=== PATIENT | female | born 1935 | race Caucasian/White ===

== ENCOUNTER 2020-06-06 11:11 | Inpatient (IN) | payer MEDICARE, BC, SELFPAY ==
[2020-06-06] VITALS (11 sets, daily range): BP systolic 135–206; BP diastolic 80–101; PULSE 55–90; RESP 15–20; TEMP 37–37.1; O2SAT 91–97; BMI 27.4; BMI 26.4
--- NOTE | 2020-06-06 11:13 | PC.NURSE ---
Rad notified of stroke protocol
--- NOTE | 2020-06-06 11:35 | PC.NURSE ---
Pt to rad
[2020-06-06 11:43] LABS: POC Glucose,Bedside 150 (70-110)
--- NOTE | 2020-06-06 11:44 | CT_ITS ---
PROCEDURE: CT HEAD/BRAIN WO CON CLINICAL INDICATION: left sided weakness COMPARISON: No exams were available for comparison TECHNIQUE: Axial images obtained. All CT scans at the facility use one or more dose reduction, viz: automated exposure control, ma/kV adjustment per patient size (including targeted exams where dose is matched to indication, i.e. head), or iterative reconstruction technique. FINDINGS: Base of skull appears grossly normal, the mastoids are clear. The basilar cisterns are mildly prominent. The ventricular system is normal for age. There is an oval hypodense lesion right periventricular white matter centrum semiovale consistent with acute to semi acute ischemic infarct. Also there are more diffuse periventricular hypodensities consistent with chronic ischemic white matter changes. There is no bleed. The sylvian fissures and cortical sulci are prominent particularly over the frontal lobes. The bony calvarium appears intact with findings of hyperostosis frontalis interna. IMPRESSION: Findings of moderate cortical atrophy with acute to semi acute ischemic infarct right centrum semiovale. Difficult to adequately age the infarct without previous studies available for comparison. Possibly follow-up MRI scan the next 24-48 hours would be helpful for better evaluation. Dictated by: Dr. Andre Starr MD 06/06/2020 12:04 Dr. Andre Starr MD in [place] 06/06/2020 12:04
[2020-06-06 11:46] LABS: Basophils # 0.2 K/mm3 (0-0.2); Basophils % 0.8 % (0.1-2.0); Eosinophils # 0.1 K/mm3 (0.0-0.4); Eosinophils % 0.5 % (0.1-12.0); Hematocrit 42.4 % (37.0-47.0); Hemoglobin 14.3 g/dL (12.2-16.2); Lymphocytes # 19.6 K/mm3 (0.7-4.5); Lymphocytes % 72.8 % (10-50); Mean Corpuscular HGB Conc 33.7 g/dL (31.8-35.4); Mean Corpuscular Hemoglobin 31.8 pg (27.0-31.2); Mean Corpuscular Volume 94.3 fl (81-99); Mean Platelet Volume 7.6 fl (7.4-10.4); Monocytes # 0.4 K/mm3 (0.1-1.0); Monocytes % 1.6 % (1.7-9.3); Neutrophils # 6.5 K/mm3 (1.8-7.8); Neutrophils % 24.3 % (37.0-80.0); Platelet Count 298 K/mm3 (142-424); Red Cell Distribution Width 13.4 % (11.5-17.5); White Blood Count 26.9 K/mm3 (4.8-10.8)
[2020-06-06 11:48] LABS: MANUAL DIFFERENTIAL MANUAL DIFFERENTIAL (MANUAL DIFF)
[2020-06-06 11:51] LABS: Chloride 100 mmol/L (98-107); Potassium 3.9 mmoL/L (3.5-5.1); Sodium 137 mmol/L (136-145)
[2020-06-06 11:54] LABS: Alanine Aminotransferase 18 U/L (12-78); Albumin Level 4.3 g/dl (3.5-5.0); Albumin/Globulin Ratio 1.3 (1.1-1.8); Alkaline Phosphatase 65 U/L (38-126); Anion Gap 13.9 mEq/L (5-15); Aspartate Amino Transferase 38 U/L (14-36); Bilirubin,Total 0.6 mg/dl (0.2-1.3); Blood Urea Nitrogen 17 mg/dl (7-17); Carbon Dioxide 27 mmol/L (22.0-30.0); Creatinine Clearance Estimated 52 mL/min (50-200); Estimated Glomerular Filt Rate 60 ml/min (>60); GFR (African American) 72 ML/MIN (>60); Globulin 3.3 g/dL (1.3-3.2); Total Protein,Serum 7.6 g/dl (6.3-8.2)
[2020-06-06 11:55] LABS: Calcium 9.4 mg/dl (8.4-10.2); Glucose 167 mg/dl (74-100)
--- NOTE | 2020-06-06 12:04 | HMH.EDWEAK ---
ED Disposition Clinical Impression: CVA (cerebral vascular accident) Qualifiers: CVA mechanism: thrombosis Precerebral and cerebral artery: unspecified cerebral artery Qualified Code(s): I63.30 - Cerebral infarction due to thrombosis of unspecified cerebral artery Disposition: Admitted As Inpatient Condition on Discharge: Fair Additional Instructions: She will be admitted for subacute CVA. At this point acute treatment is contraindicated. Will provide secondary prevention and start patient on a statin will get a fasting lipid panel in the morning. Patient's blood glucose glucose is also elevated at 170. In the meantime we will start sliding scale insulin with fingersticks. Patient also has elevated white count of nearly 27,000 with leukocytic predominance. Patient reports she has not had labs for many years as such we will further define and differentiate this abnormality with a erythrocyte sedimentation rate as well as C-reactive protein I will also order a leukocyte alanine phosphatase and evaluation of leukemia. Prior to admission case was discussed with Dr. Johnson of neurology who agreed with the current plan. Referrals: Tucker Castillo MD [Primary Care Provider] - - Critical Care Critical Care Time: No Attestation: On 06/06/20, the high probability of a clinically significant, sudden or life threatening deterioration of the following system(s) required my full and direct attention, intervention and personal management. The time I documented below is in addition to time spent performing reported procedures but includes the following listed in this critical care notation. Medical Decision Making - Medical Records Medical records reviewed: Yes: I reviewed the patient's medical records. - [facility] Inquiry Pt receiving controlled substance: No Vital Signs: 06/06/20 11:12 06/06/20 11:42 06/06/20 12:01 Temperature 98.8 F Temperature Source Oral Pulse Rate [Left Radial] 90 74 80 Respiratory Rate 19 20 17 Blood Pressure [Right Arm] 206/93 H 166/83 H 182/93 H Blood Pressure Mean [Right Arm] 130 110 122 Blood Pressure Source [Right Arm] Automatic Cuff Blood Pressure Position [Right Arm] Sitting 02 Sat by Pulse Oximetry 96 97 91 L Oxygen Delivery Method Room Air 06/06/20 12:47 06/06/20 13:06 Temperature Temperature Source Pulse Rate [Left Radial] 60 60 Respiratory Rate Blood Pressure [Right Arm] 180/94 H 164/90 H Blood Pressure Mean [Right Arm] 122 114 Blood Pressure Source [Right Arm] Automatic Cuff Automatic Cuff Blood Pressure Position [Right Arm] Sitting Sitting 02 Sat by Pulse Oximetry 97 94 L Oxygen Delivery Method Room Air Room Air - Lab Data Lab Results 06/06/20 11:37: POC Glucose 150 H 06/06/20 11:42: WBC 26.9 H*, RBC 4.50, Hgb 14.3, Hct 42.4, MCV 94.3, MCH 31.8 H, MCHC 33.7, RDW 13.4, Plt Count 298, MPV 7.6, Neut % (Auto) 24.3 L, Lymph % (Auto) 72.8 H, [place] % (Auto) 1.6 L, Eos % (Auto) 0.5, Baso % (Auto) 0.8, Neut # (Auto) 6.5, Lymph # (Auto) 19.6 H, [place] # (Auto) 0.4, Eos # (Auto) 0.1, Baso # (Auto) 0.2, Total Counted 100, Neutrophils % (Manual) 29 L, Lymphocytes % (Manual) 71 H, Platelet Estimate Normal, RBC Morphology Normal 06/06/20 11:42: Sodium 137, Potassium 3.9, Chloride 100, Carbon Dioxide 27, Anion Gap 13.9, BUN 17, Creatinine 0.90, Estimated Creat Clear 52, Estimated GFR 60, Est GFR ( Amer) 72, Glucose 167 H, Calcium 9.4, Total Bilirubin 0.6, AST 38 H, ALT 18, Alkaline Phosphatase 65, Total Protein 7.6, Albumin 4.3, Globulin 3.3 H, Albumin/Globulin Ratio 1.3 06/06/20 11:42: Troponin I < 0.01 06/06/20 11:42: SARS-CoV-2 IgG Ab (Rapid) Negative, SARS-CoV-2 IgM Ab (Rapid) Negative Result diagrams: 06/06/20 11:42 06/06/20 11:42 Orders (Tests/Meds): ORDERS Category Date Time Status C-Reactive Protein Stat Lab 06/06/20 11:42 Received Erythrocyte Sedimentation Rate Stat Lab 06/06/20 11:42 Received Leukocyte Alkaline Phos Score Stat Lab 06/06/20 12:54 Ordered
--- NOTE | 2020-06-06 12:04 | PC.NURSE ---
Pt returned from rad.
--- NOTE | 2020-06-06 12:14 | ECG_ITS ---
APPROVED REPORT Exam: Resting ECG HR:71 bpm ECG Measurements Heart Rate 71 AXES MA 168 P 62 QRSd 114 QRS -51 QT 382 T 44 QTc 415 <Conclusion> Normal sinus rhythm Left anterior fascicular block Minimal voltage criteria for LVH, may be normal variant Abnormal ECG Electronically signed by : Tucker Cardozo, 06/07/2020 06:56:07
[2020-06-06 12:22] LABS: Lymphocytes % 71 % (10-50); Neutrophils % 29 % (42-76); Platelet Estimate Normal; RBC Morphology Normal; Total Cells Counted 100
--- NOTE | 2020-06-06 12:27 | PC.NURSE ---
Paging dr Vargas
--- NOTE | 2020-06-06 12:29 | PC.NURSE ---
Message left for dr fraser
[2020-06-06 12:36] LABS: Coronavirus 19 IgG Antibody Negative (Negative); Coronavirus 19 IgM Antibody Negative (Negative)
[2020-06-06 12:40] LABS: Troponin I < 0.01 ng/ml (0.00-0.034)
--- NOTE | 2020-06-06 12:49 | PC.NURSE ---
dr maldonado speaking with dr fraser
--- NOTE | 2020-06-06 12:54 | PC.NURSE ---
calling [facility] at this time
--- NOTE | 2020-06-06 13:05 | PC.NURSE ---
kali vines speaking with dr kaur at [facility]
--- NOTE | 2020-06-06 13:07 | PC.NURSE ---
[facility] declined transfer.
[2020-06-06 13:09] LABS: C-Reactive Protein 1.9 mg/L (0-4)
--- NOTE | 2020-06-06 13:29 | PC.NURSE ---
Notified house carpenter helper of admission
[2020-06-06 13:31] LABS: Erythrocyte Sedimentation Rate 53 mm/hr (0-30)
--- NOTE | 2020-06-06 13:52 | PC.NURSE ---
Pt eating at this time.
[2020-06-06 14:00] LABS: Hemoglobin A1C 5.7 % (4.0-6.0)
--- NOTE | 2020-06-06 14:43 | PC.NURSE ---
Pt up to restroom.
--- NOTE | 2020-06-06 15:07 | PC.NURSE ---
Report called to [facility]
--- NOTE | 2020-06-06 15:41 | PC.NURSE ---
Pt arrived to the floor at 1530 via wc with staff. PT and speech both notified about evaluation orders. Doppler order edited to correct order.
[2020-06-06 17:07] LABS: POC Glucose,Bedside 100 (70-110)
[2020-06-06 21:46] LABS: POC Glucose,Bedside 102 (70-110)
[2020-06-07 04:00] VITALS: BP 173/59; PULSE 63; RESP 18; TEMP 37; O2SAT 94
--- NOTE | 2020-06-07 05:29 | PC.NURSE ---
No acute changes noted. Pt A&O x3. Has rested well this shift. Has not voiced any concerns or discomfort. She has ambulated to BR with assist x1. Has tolerated well. Pt states that she has some difficulty due to past hip Sx. Pt continues to have left side facial droop and slight difference in strength in upper extremities with (R) greater than (L) which are no changes from prior ER MD assessment. VS have remained stable. Call light within reach. Safety measures in place. Will continue to monitor.
[2020-06-07 05:31] VITALS: BMI 26.4
[2020-06-07 05:44] LABS: Basophils # 0.2 K/mm3 (0-0.2); Basophils % 0.8 % (0.1-2.0); Eosinophils # 0.3 K/mm3 (0.0-0.4); Eosinophils % 1.2 % (0.1-12.0); Hematocrit 40.9 % (37.0-47.0); Hemoglobin 13.5 g/dL (12.2-16.2); Lymphocytes # 18.7 K/mm3 (0.7-4.5); Lymphocytes % 72.3 % (10-50); Mean Corpuscular Hemoglobin 31.4 pg (27.0-31.2); Mean Corpuscular Volume 95.4 fl (81-99); Mean Platelet Volume 7.5 fl (7.4-10.4); Monocytes # 0.6 K/mm3 (0.1-1.0); Monocytes % 2.4 % (1.7-9.3); Neutrophils # 6.1 K/mm3 (1.8-7.8); Neutrophils % 23.4 % (37.0-80.0); Platelet Count 275 K/mm3 (142-424); Red Blood Count 4.29 M/mm3 (4.20-5.40); Red Cell Distribution Width 13.5 % (11.5-17.5)
[2020-06-07 05:50] LABS: White Blood Count 25.9 K/mm3 (4.8-10.8)
[2020-06-07 05:51] LABS: MANUAL DIFFERENTIAL MANUAL DIFFERENTIAL (MANUAL DIFF)
[2020-06-07 06:00] LABS: POC Glucose,Bedside 90 (70-110)
--- NOTE | 2020-06-07 06:00 | FL_ITS ---
PROCEDURE: FL BARIUM SWALLOW MODIFIED CLINICAL INDICATION: Difficulty swallowing COMPARISON: No exams were available for comparison TECHNIQUE: Patient administered varying consistencies of barium contrast, while viewed in lateral position under real-time fluoroscopy with cine recording. FLUOROSCOPY TIME:2 minutes and 27 seconds The study was performed in conjunction with speech pathologist. Please see that report & recommendations. FINDINGS: Patient was given varying consistencies of barium. There was a mild amount of residual within the piriform sinuses. No aspiration or penetration evident. There was minimal early spillage into the vallecula.. Fluoroscopy time: 2 minutes and 27 seconds. IMPRESSION: No aspiration or penetration. Minimal residual within the piriform sinuses and minimal early spillage into the vallecula. Please see speech pathologist report and recommendations. Dictated by: Omi Camilo MD 06/10/2020 09:09 Omi Camilo MD in [place] 06/10/2020 09:09
[2020-06-07 06:05] LABS: Anion Gap 9.9 mEq/L (5-15); Blood Urea Nitrogen 16 mg/dl (7-17); Calcium 9.1 mg/dl (8.4-10.2); Carbon Dioxide 30 mmol/L (22.0-30.0); Chloride 102 mmol/L (98-107); Chol/HDL Ratio 4.1 (1-3.5); Cholesterol 176 mg/dl (140-200); Creatinine Clearance Estimated 51 mL/min (50-200); Estimated Glomerular Filt Rate 69 ml/min (>60); GFR (African American) 83 ML/MIN (>60); Glucose 104 mg/dl (74-100); HDL Cholesterol 43 mg/dl (40-60); Potassium 3.9 mmoL/L (3.5-5.1); Sodium 138 mmol/L (136-145); Triglycerides 102 mg/dl (30-150); VLDL Cholesterol 20 mg/dL (0-40)
[2020-06-07 06:06] LABS: Lymphocytes % 81 % (10-50); Monocytes % 1 % (2-9); Neutrophils % 18 % (42-76); Platelet Estimate Normal; RBC Morphology Normal; Total Cells Counted 100
[2020-06-07 06:16] LABS: Direct LDL Cholesterol 106.86 mg/dL (100-129)
--- NOTE | 2020-06-07 07:09 | HMH.HP ---
*Admission Date: 06/07/20 *Chief complaint: Weakness of left side *History of present illness: 85-year-old female presented to the emergency department yesterday with progressing weakness on the left side of the body making her feel unsteady on her feet and having some difficulty ambulating. Patient had been seen in my office as a walk-in on June 03 when she presented with her daughter after her daughter noticed that the patient had a left facial droop. It was unclear at that time how long the left facial droop had been present although it was believed to be less than 24 hours. Patient refused to go to the emergency department. Work-up in the office was only significant for the left facial droop. Patient claims a history of prior stroke in 2003 although there are no records to support this. She does not recall what her symptoms from her 2004 stroke were only that I had a headache . Patient's blood pressure was noted to be up in office. Differential at that time was Mayo's palsy versus a subacute stroke. Patient's blood pressure was elevated and she was started on Bystolic 5 mg. Of note it had been 18 months since the patient had been to the office and had stopped taking all of her medicines except for aspirin 325 mg/day. Patient returned to the office the next day and reported that she felt like she was having some difficulty walking. Gait appeared normal. There was no balance issues. Patient had some proximal left leg weakness but this was not new as patient attributes this to poor response after left hip replacement. Patient plan was for patient to follow-up but she had been instructed should symptoms worsen to go to the emergency department. Yesterday the patient felt like her left sided symptoms had worsened and so she presented to the emergency department. CT scan revealed evidence of acute versus subacute stroke. [facility] stroke service was contacted but as this had been present for several days transfer was not required. Patient was admitted for blood pressure control, further work-up. [facility] History Medical History: Reports:: Hypertension Denies:: Cancer, Diabetes Mellitus Type 1, Diabetes Mellitus Type 2, Internal Pacemaker, MRSA *Have you ever received a pneumonia vaccine?: No *Have you received a flu vaccine this season?: No Other Medical History: Reports: Thyroid Disease Laterality Cases: Bilateral: Total Hip Replacement Other Surgeries: No: Pacemaker Amputation: No Fractures: No - *Social History Last grade of school completed: 11th or 12th Smoking Status: Never smoker Alcohol Intake: never *Occupational Status:: retired Housing: house *Travel in the last 8 weeks: None Family Hx:: Cancer Review of Systems - Constitutional Denies body ache(s), Denies chills, Denies lack of energy - Eyes Reports blurry vision - ENT Reports abnormal hearing - *Cardiovascular Denies chest pain, Denies chest pain at rest, Denies shortness of breath when lying down, Denies rapid, pounding, or irregular heartbeat - *Respiratory Denies change in phlegm color, Denies chest congestion - *Gastrointestinal Denies abdominal pain, Denies belching, Denies loose stools - *Genitourinary Denies difficulty urinating - *Musculoskeletal Reports abnormal walking, Reports joint pain (Left hip), Reports muscle weakness (Left leg), Denies body aches, Denies numbness - Integumentary/Breasts Denies hair loss - *Neurologic Reports abnormal walking, Denies abnormal movements, Denies abnormal speech - Hematologic/Lymphatic Denies easy bleeding, Denies easy bruising - Allergic/Immunologic Denies GI upset with certain foods Meds Home Medications Medication Instructions Recorded Confirmed Type Aspirin 81 mg PO DAILY 06/06/20 06/06/20 History Nebivolol HCl [Bystolic] 5 mg PO DAILY 06/06/20 06/06/20 History Allergies Allergy/AdvReac Type Severity Reaction Status Date / Time No Known Drug Allergies Allergy Verified 06/06/20 15:44
--- NOTE | 2020-06-07 07:35 | HMH.PHAVTE ---
[facility] Pharmacy VTE Monitoring - Patient Demographics Admission date: 06/06/20 Report Date: 06/07/20 Time: 07:35 Allergies/Adverse Reactions: Patient Allergies No Known Drug Allergies Allergy (Verified 06/06/20 15:44) Height: 1.7 m Weight: 76.26 kg Patient Problems: Current Active Problems CVA (cerebral vascular accident) (Acute) Essential hypertension (Acute) - VTE Risk Labs: VTE Related Lab Results Hgb 13.5 g/dL (12.2-16.2) 06/07/20 05:30 Hct 40.9 % (37.0-47.0) 06/07/20 05:30 Plt Count 275 K/mm3 (142-424) 06/07/20 05:30 BUN 16 mg/dl (7-17) 06/07/20 05:30 Creatinine 0.80 mg/dl (0.52-1.04) 06/07/20 05:30 Estimated Creat Clear 51 mL/min (50-200) 06/07/20 05:30 Was VTE Risk Assessment Performed: Yes VTE Score: 2 VTE Risk Level: Very Low Risk - Prophylaxis VTE Prophylaxis Ordered?: Yes Types of VTE Prophylaxis: TEDS Knee High Location of Applied Device: Bilateral Lower Extremeties
[2020-06-07 08:00] VITALS: BP 170/89; PULSE 69; RESP 18; TEMP 36.9; O2SAT 94
[2020-06-07 08:20] VITALS: O2SAT 94
--- NOTE | 2020-06-07 08:23 | PC.NURSE ---
SPOKE TO HANDY [facility]) REGARDING PT, OT AND SPEECH EVAL.
--- NOTE | 2020-06-07 09:08 | HMH.PHAINT ---
MEDICATION RECONCILIATION COMPLETED ON PATIENT USING EXTERNAL FILL HISTORY FROM PHARMACY AND DR. NAZARIO H&P. -SHANNEN GREENWOOD, PHARMD
--- NOTE | 2020-06-07 09:50 | HMH.OTEV ---
OT Inpatient Evaluation Rehab OT IP Evaluation Start: 06/07/20 07:22 Freq: ONCE Status: Complete Protocol: [facility]07[facility]20 09[facility] (Rec: 06/07/20 09:50 [facility] [id number]) Rehab OT IP Assessment Subjective History Pt oriented x 3 on arrival and agreeable to engage in therapy evaluation. Pt was admitted via ED on 06.06.20 with left facial droop and continued weakness in L side; acute CVA. Pt has a past medical history of HTN. Pt lived alone prior to admission . Pt claims she was completely independent with ADLs and IADLs. Pt did not require AE during ambulation. Pt also still drove until she started having these symptoms on 06.03.20 Subjective I could do anything. Objective Patient Orientation Person,Place,Birthday Upper Extremity Gross ROM Min Limitation <25% Shoulder ROM Limitations Muscle Weakness Elbow ROM Limitations Muscle Weakness Wrist Limitations of Range of Motion Muscle Weakness Bed Mobility bed mobility-scooting,bed mobility - supine/sit,bed mobility - rolling Assist Level Supervision/Stand by Transfer Training Sit/Stand Transfer Assist Level Contact Guard/Hand Hold Rehab OT IP prob,goals,plan Problems Date of Evaluation: 06/07/20 OT IP Problems Bed Mobility,Transfers,Gait, Balance,Self care,Safety Rehab Potential Rehab Potential Good Equipment Needs Assistive Devices None / NA Plan OT intervention Plan Bed Mobility,Transfers,Gait, Balance,Self care,Safety, Therapeutic Exercise OT Plan Frequency Daily Duration LOS Discharge Goals Bed Mobility Ability Standby Assistance Sit to Stand Chair Transfer Ability Supervision/Stand by Chair Transfer Ability Supervision/Stand by Chair Transfer Technique Sit to/from Ambulatory Chair Transfer Assistive Devices None Feeding Ability Independent Lower Body Dressing Ability Assistance X1 Upper Body Dressing Ability Standby Assistance Bathing Ability Assistance x1 Performing Toilet Hygiene Ability Standby Assistance Overall Commode/Toilet Transfer Ability
--- NOTE | 2020-06-07 09:51 | PC.NURSE ---
pt off floor to get barium swallow done.
--- NOTE | 2020-06-07 10:11 | HMH.PTEV ---
Physical Therapy Evaluation Rehab PT IP Evaluation Start: 06/06/20 15:16 Freq: .once Status: Active Protocol: Document 06/07/20 09:45 GUEVARA (Rec: 06/07/20 10:11 GUEVARA [id number]) Subjective/History History History This is the initial physical therapy evaluation for Nica Parra an 85 y/o female with progressive weakness on her L side. Pt. reports that she feels unsteady on her feet and during ambulation. Pt. presented to Dr. Castillo on June 03 with L sided facial droop noticed by the pts. daughter. The differential at that time was Mayo's palsey vs a subacute stroke. Patient returned to the office the next day and reported that she felt like she was having some difficulty walking. Gait appeared normal. There was no balance issues. Patient had some proximal left leg weakness but this was not new as patient attributes this to poor response after left hip replacement. On 06/05/[address] scan which showed evidence of an acute stroke. Note copied from History and physical Note by DEANNA Umanzor Subjective Subjective Pt. reported that she has L sided weakness and has troubles during ambulation with her L LE stating she just drags it . Pt. reported feeling fine during ambulation . Co-treat with Arturo Moran OT Note by DEANNA Umanzor. Rehab PT IP Eval Objective Appearance Patient Behavior Appropriate,Cooperative Patient Orientation Person,Place,Time,Year Difficulty following instructions none Speech Pattern Clear,Appropriate,Coherent Ambulation Patient Able to Ambulate Yes Ambulation Observation IP General Gait Pattern Observation Decrease Stride Lngth (R),
--- NOTE | 2020-06-07 10:50 | HMH.SLMBS2 ---
Speech & Language Evaluation Speech/Language Mod Barium Swallow Start: 06/06/20 15:16 Freq: ONCE Status: Complete Protocol: Document 06/07/20 10:43 ALBERTO (Rec: 06/07/20 10:50 ALBERTO [id number]) General Information General Current Food Consistancy Regular,Thin Liquids Dentition Good Dentition Oxygen Status Room Air Facial Symmetry Asymmetrical Patient Orientation Person,Place,Time Ability to Follow Directions Excellent Communication Ability No Impairment MBS Recommendations Diet Dietary Recommendations Regular,Thin Liquids Treatment/Strategies Treatment Recommendation Oral Motor Exercises Strategy/Precaution Recommend Sitting Upright (90 deg),Small Bites and Sips,Alternate Liquids/Solids Mod Barium Swallow Impressions Summary and Impressions Oral Phase Impression No Impairment (WFL) Oral Phase Summary Ms. Parra was given the following consistencies: thins via straw placed on right side and open cup, pudding, mechanical soft, regular, and pill with thin wash via open cup. No oral phase impairments were noted during evaluation. Pharyngeal Phase Impression Minimal Impairment Pharyngeal Phase Summary Minimal residue in pyriform sinuses with first presentation of thin liquids via straw on right side, cleared with dry swallow. Speech/Language MBS Assessment/Goals/Plan Assessment Date of Evaluation: 06/07/20 Evaluation Type Initial Certification Assessment/Problems Rule out dysphagia Does Patient Qualify for Service No Qualify/Failure Comment No signs of aspiration noted during evaluation Recommendations PHYSICIAN CERTIFICATION: The specified therapy services are required, authorized, and reviewed every 30 days. Diet Recommendations Normal Liquid Type Recommendations Normal/Thin SL Swallow Guidelines Standard Aspiration Prec. Dysphagia Swallow Precautions/Strategies Sitting Upright (90 deg),Small Bites and Sips,Alternate Liquids/Solids Plan Pt/Guardian verbally ack understanding Yes of dx/prognosis/goals G -code Required No Mod Barium Swallow Setup Exam Setup Radiologist Omi Camilo Level of Consciousness Awake,Alert,Appropriate, Follows Commands Position (degrees) 90 Mod Barium Swallow-L
[2020-06-07 11:25] VITALS: BMI 26.3
[2020-06-07 12:50] LABS: POC Glucose,Bedside 109 (70-110)
--- NOTE | 2020-06-07 15:00 | PC.NURSE ---
ATTEMPTED TO CALL DR. TAN OFFICE AND REPORT LAB WAS NOT ABLE TO RUN TEST R/T TEST NOT BEING AVAILABLE.
--- NOTE | 2020-06-07 15:21 | CA_ITS ---
APPROVED REPORT Manager [employer] Sales: SOL Laterality: Bilateral Indications: CVA Doppler Spectral Velocity Analysis ECA (R) 155.10/6.40 cm/s ECA (L) 109.80/8.70 cm/s dICA (R) 87.40/21.40 cm/s dICA (L) 109.70/28.30 cm/s Nydia (R) 106.90/21.40 cm/s Nydia (L) 84.80/19.90 cm/s pICA (R) 70.00/18.00 cm/s pICA (L) 50.90/12.80 cm/s dCCA (R) 64.30/8.20 cm/s dCCA (L) 74.80/14.20 cm/s pCCA (R) 88.30/12.00 cm/s pCCA (L) 97.30/7.70 cm/s Vert (R) 36.60/9.60 cm/s Vert (L) 32.70/5.80 cm/s ICA/CCA 1.66 ICA/CCA 1.47 Findings Duplex evaluation demonstrates stenosis of the right proximal internal carotid artery <20% with PSV <140 cm/sec, EDV <100 cm/sec, and IC/CC Ratio <4.0. Duplex evaluation demonstrates stenosis of the left proximal internal carotid artery <20% with PSV <140 cm/sec, EDV <100 cm/sec, and IC/CC Ratio <4.0. Conclusion Duplex evaluation demonstrates stenosis of the right proximal internal carotid artery <20% with PSV <140 cm/sec, EDV <100 cm/sec, and IC/CC Ratio <4.0. Duplex evaluation demonstrates stenosis of the left proximal internal carotid artery <20% with PSV <140 cm/sec, EDV <100 cm/sec, and IC/CC Ratio <4.0. Electronically signed by : Omi Camilo MD 06/07/2020 17:23:40
[2020-06-07 16:00] VITALS: BP 130/76; PULSE 56; RESP 17; TEMP 37; O2SAT 99
--- NOTE | 2020-06-07 16:00 | PC.NURSE ---
DR. TAN NOTIFIED OF NOT BEING ABLE TO PERFORM LAP LAB SINCE fl3ur DOES NOT DO THIS. STATES THAT IS OKAY, NO NEW ORDERS.
--- NOTE | 2020-06-07 16:30 | PC.NURSE ---
no changes this shift. bowel sounds normoactive in all quadrants, lungs clear throughout bilaterally. a/o X3. noted left sided weakness, unchanged since morning assessment. facial drooping noted on left side. will continue to monitor.
[2020-06-07 19:41] VITALS: BP 124/64; PULSE 58; RESP 18; TEMP 36.6; O2SAT 95
[2020-06-07 19:51] LABS: POC Glucose,Bedside 96 (70-110)
[2020-06-07 20:45] LABS: POC Glucose,Bedside 99 (70-110)
--- NOTE | 2020-06-08 03:31 | PC.NURSE ---
Pt A&OX4 lungs CTA. pt denies SOA or pain. left facial droop,left arm and leg weakness remain same since prior assessment. pt ambulates to BR x 1 assistance. Pt has slept quietly this shift
[2020-06-08 04:00] VITALS: BP 124/64; PULSE 67; TEMP 36.5; O2SAT 94
[2020-06-08 05:15] LABS: POC Glucose,Bedside 98 (70-110)
[2020-06-08 05:30] VITALS: BMI 26.2
[2020-06-08 06:08] LABS: Chloride 99 mmol/L (98-107); Potassium 3.9 mmoL/L (3.5-5.1); Sodium 135 mmol/L (136-145)
[2020-06-08 06:11] LABS: Anion Gap 10.9 mEq/L (5-15); Blood Urea Nitrogen 22 mg/dl (7-17); Carbon Dioxide 29 mmol/L (22.0-30.0); Creatinine Clearance Estimated 51 mL/min (50-200); Estimated Glomerular Filt Rate 60 ml/min (>60); GFR (African American) 72 ML/MIN (>60); Glucose 104 mg/dl (74-100)
--- NOTE | 2020-06-08 07:03 | HMH.ACPN2 ---
Internal Medicine - PN: Subj *Date: 06/08/20 *Time: 07:03 Interval history: Patient has no complaints this morning. She participated with PT and OT yesterday and home health physical therapy or outpatient physical therapy was recommended to continue strengthening of her left arm and leg weakness. Patient denies any change overall in how she feels. Blood pressures have been much better since yesterday afternoon. Patient has been ambulating independently and reports she feels steadier on her feet this morning. Exam Vital signs and Labs for Last 24 Hours: Temp Pulse Resp BP Pulse Ox 97.7 F 67 18 124/64 94 L 06/08/20 04:00 06/08/20 04:00 06/07/20 19:41 06/08/20 04:00 06/08/20 04:00 Laboratory Results - last 24 hr 06/07/20 11:39: POC Glucose 109 06/07/20 16:20: POC Glucose 96 06/07/20 20:14: POC Glucose 99 06/08/20 05:03: POC Glucose 98 06/08/20 05:38: Sodium 135 L, Potassium 3.9, Chloride 99, Carbon Dioxide 29, Anion Gap 10.9, BUN 22 H D, Creatinine 0.90, Estimated Creat Clear 51, Estimated GFR 60, Est GFR ( Amer) 72, Glucose 104 H, Calcium 9.0 I & O for Last 24 hours: Intake & Output 06/05/20 06/06/20 06/07/20 06/08/20 11:59 11:59 11:59 11:59 Intake Total 220 / 220 840 / 840 Balance 220 / 220 840 / 840 Weight 170 lb 167 lb 8.821 oz 167 lb 6 oz Narrative: Patient appears comfortable. Neck has no carotid bruits. Lungs are clear. Heart has regular rate and rhythm. Musculoskeletal exam reveals improved strength in the left arm and leg musculature compared to yesterday Carotid Doppler shows less than 20% stenosis bilaterally of the internal carotid arteries Assessment and Plan (1) CVA (cerebral vascular accident) Status: Acute Qualifiers: Precerebral and cerebral artery: unspecified cerebral artery Qualified Code(s): I63.30 - Cerebral infarction due to thrombosis of unspecified cerebral artery Category: Medical Code(s): I63.9 - Cerebral infarction, unspecified (2) Essential hypertension Status: Acute Category: Medical Code(s): I10 - Essential (primary) hypertension (3) Chronic lymphocytic leukemia Status: Suspected Category: Medical Code(s): C91.10 - Chronic lymphocytic leukemia of B-cell type not having achieved remission - Assessment and plan all Dx Assessment and Plan for all problems:: 1. Discharge home today 2. Care management consult to arrange physical therapy through home health 3. Patient will continue aspirin and Plavix as well as lisinopril and carvedilol as an outpatient and follow-up with me on June 11.
--- NOTE | 2020-06-08 07:08 | HMH.DCSUM ---
General - General Admission date:: 06/06/20 Discharge date: 06/08/20 HPI HPI: 85-year-old female presented to the emergency department yesterday with progressing weakness on the left side of the body making her feel unsteady on her feet and having some difficulty ambulating. Patient had been seen in my office as a walk-in on June 03 when she presented with her daughter after her daughter noticed that the patient had a left facial droop. It was unclear at that time how long the left facial droop had been present although it was believed to be less than 24 hours. Patient refused to go to the emergency department. Work-up in the office was only significant for the left facial droop. Patient claims a history of prior stroke in 2003 although there are no records to support this. She does not recall what her symptoms from her 2004 stroke were only that I had a headache . Patient's blood pressure was noted to be up in office. Differential at that time was Mayo's palsy versus a subacute stroke. Patient's blood pressure was elevated and she was started on Bystolic 5 mg. Of note it had been 18 months since the patient had been to the office and had stopped taking all of her medicines except for aspirin 325 mg/day. Patient returned to the office the next day and reported that she felt like she was having some difficulty walking. Gait appeared normal. There was no balance issues. Patient had some proximal left leg weakness but this was not new as patient attributes this to poor response after left hip replacement. Patient plan was for patient to follow-up but she had been instructed should symptoms worsen to go to the emergency department. Yesterday the patient felt like her left sided symptoms had worsened and so she presented to the emergency department. CT scan revealed evidence of acute versus subacute stroke. [facility] stroke service was contacted but as this had been present for several days transfer was not required. Patient was admitted for blood pressure control, further work-up. Patient also had significantly elevated white blood cell count with predominance of lymphocytes suggestive of a lymphocytic leukemia. Patient will need outpatient hematology referral. Hospital Course Hospital Course: Patient was admitted and placed on telemetry. No arrhythmias were detected. The morning of June 07 she underwent carotid Doppler ultrasound which revealed less than 20% stenosis bilaterally of the internal carotid arteries. On physical exam on the morning of June 07 patient had objective left arm and leg weakness that had changed since her office visits. PT, OT, speech therapy were all consulted for evaluation. Patient had no swallowing difficulties and PT and OT recommended continue therapy through either outpatient services or home health. Patient was started on carvedilol 6.25 mg twice daily and lisinopril 10 mg daily. Blood pressures came down. On the morning of June 08 patient had begun to show improvement in strength in the left arm and leg musculature. Patient was ambulating independently. Patient was discharged home. She will continue aspirin 81 mg daily and Plavix 75 mg daily. Plavix will be prescribed for 1 month. Patient will need detention form blood pressure monitoring and medication compliance it was told her that I thought it was going to beleft that is what that is the new pain Objective Vital signs: Temp Pulse Resp BP Pulse Ox 97.7 F 67 18 124/64 94 L 06/08/20 04:00 06/08/20 04:00 06/07/20 19:41 06/08/20 04:00 06/08/20 04:00 no acute distress - *Routine HEENT Exam Head: Present: normocephalic Eye: Present: EOMI, cataracts - *Routine Respiratory Exam Present: CTA bilaterally - *Routine Cardiovascular Exam Present: RRR - *Routine Neurological Exam Present: alert, oriented X3 Left facial droop Results Labs on day of discharge: Labs from last 24 hours 06/08/20 06/08/20 1
[2020-06-08 07:56] VITALS: BP 139/73; PULSE 68; RESP 17; TEMP 36.8; O2SAT 95
[2020-06-08 08:00] VITALS: O2SAT 95
--- NOTE | 2020-06-08 08:35 | HMH.PHAINT ---
DISCHARGE COUNSELING COMPLETED ON PATIENT. NEW PRESCRIPTIONS FOR LIPITOR, LISINOPRIL, CARVEDILOL, ASPIRIN, AND PLAVIX. ALL NEW PRESCRIPTIONS WERE SENT TO [facility] IN [place]. PATIENT WILL BE STOPPING REGULAR ASPIRIN AND SWITCHING TO BABY ASPIRIN AND WILL ALSO BE STOPPING BYSTOLIC FOR CARVEDILOL. PATIENT VERBALIZED UNDERSTANDING AND HAD NO QUESTIONS AT THIS TIME. -SHANNEN GREENWOOD, PHARMD
--- NOTE | 2020-06-08 10:12 | SW/DCPLANNER ---
RECEIVED REFERRAL FOR HOME HEALTH FOR THIS PATIENT WHO IS DISCHARGING HOME TODAY.... HE WILL RECEIVE PT/OT AND LONG-TERM. I SPOKE WITH PATIENT THIS MORNING AND SHE CHOSE [facility]... SHE IS DISCHARGING HOME TODAY AND I HAVE ASKED [facility] TO SEE HER IN THE AM TO START SERVICES...
== END 2020-06-08 10:21 | disposition home health service (06) | DRG 65 ==
LOC: ER 12:54 → 2ND 15:12
PROVIDERS: Admitting Provider Emergency Medicine; Emergency Provider Emergency Medicine; PCP Family Medicine; Visit Provider Family Medicine
DX: I63.30 Cerebral infarction due to thrombosis of unspecified cerebral artery (principal); C91.10 Chronic lymphocytic leukemia of B-cell type not having achieved remission; G81.94 Hemiplegia, unspecified affecting left nondominant side; I10 Essential (primary) hypertension; Z79.01 Long term (current) use of anticoagulants; Z79.899 Other long term (current) drug therapy; R29.810 Facial weakness
CPT/HCPCS: 36415; 70371; 70450; 80048; 80053; 80061; 82962; 83036; 84484; 85007; 85025; 85540; 85651; 86140; 86328; 92611; 93005; 93880; 97110; 97116; 97161; 97166; 99284

== ENCOUNTER → 2020-07-01 09:40 | Outpatient (CLI) | payer MEDICARE, BC, SELFPAY | PROVIDERS: Visit Provider Internal Medicine Medical Oncology | DX: C91.10 Chronic lymphocytic leukemia of B-cell type not having achieved remission (principal) | CPT/HCPCS: 36415; 88189 ==

== ENCOUNTER → 2022-06-09 15:25 | Outpatient (CLI) | payer MEDICARE, BC, SELFPAY ==
--- NOTE | 2022-06-09 15:28 | MM_ITS ---
PROCEDURE INFORMATION: Exam: Bilateral Screening 3D Mammography Exam date and time: 06/09/2022 3:45 PM Age: 87 years old Clinical indication: Screening mammogram TECHNIQUE: Imaging protocol: Bilateral Screening tomosynthesis and 2D mammography including computer-aided detection (CAD) when performed. COMPARISON: No relevant prior studies available. FINDINGS: MAMMOGRAPHY: Breast composition: There are scattered areas of fibroglandular density. Mass: benign-appearing subcentimeter nodules are present in the bilateral breast. No new or morphologically suspicious nodule has developed to suggest malignancy. Architectural distortion: No new or suspicious architectural distortion. Calcifications: No new or suspicious calcifications are present Asymmetric density: No new or suspicious asymmetric density is present Skin thickening: None. Axillary adenopathy: None. IMPRESSION: No mammographic evidence of malignancy. Recommend annual screening mammography unless otherwise clinically indicated. ASSESSMENT: BI-RADS category 2: Benign
== END ==
PROVIDERS: PCP Family Medicine; Visit Provider Family Medicine
DX: Z12.31 Encounter for screening mammogram for malignant neoplasm of breast (principal)
CPT/HCPCS: 77063; 77067

== ENCOUNTER 2022-10-20 00:20 | Observation (INO) | payer MEDICARE, BC, SELFPAY ==
[2022-10-20] VITALS (14 sets, daily range): BP systolic 123–155; BP diastolic 58–79; PULSE 55–94; RESP 16–20; TEMP 36.6–37.3; O2SAT 93–99; BMI 25.8; BMI 26.1; BMI 25.5
--- NOTE | 2022-10-20 00:22 | ECG_ITS ---
APPROVED REPORT Exam: Resting ECG HR:51 bpm ECG Measurements Heart Rate 51 AXES NM 187 P 63 QRSd 112 QRS -48 QT 436 T 37 QTc 414 Conclusion SINUS BRADYCARDIA WITH SINUS ARRHYTHMIA INCOMPLETE RIGHT BUNDLE BRANCH BLOCK [90+ ms QRS DURATION, TERMINAL R IN V1/V2, 40+ ms S IN I/aVL/V4/V5/V6] LEFT ANTERIOR FASCICULAR BLOCK [QRS AXIS <= -45, QR IN I, RS IN II] ABNORMAL ECG UNCONFIRMED REPORT Electronically signed by : Tucker Cardozo MD 10/20/2022 08:56:28
--- NOTE | 2022-10-20 00:28 | CT_ITS ---
PROCEDURE INFORMATION: Exam: CT Cervical Spine Without Contrast Exam date and time: 10/20/2022 1:36 AM Age: 87 years old Clinical indication: Injury or trauma; Fall; Blunt trauma; Additional info: Fall, syncope TECHNIQUE: Imaging protocol: Computed tomography of the cervical spine without contrast. Radiation optimization: All CT scans at this facility use at least one of these dose optimization techniques: automated exposure control; mA and/or kV adjustment per patient size (includes targeted exams where dose is matched to clinical indication); or iterative reconstruction. Other protocol: This patient has received [address] and 0 known cardiac nuclear medicine studies in the 12 months prior to the current study. COMPARISON: CT HEAD/BRAIN WO CON 10/20/2022 1:34 AM FINDINGS: Bones/joints: The cervical spine demonstrates moderate discogenic and spondylitic degenerative changes degenerative changes at multiple levels. This is predominantly manifest by endplate discogenic degenerative changes and marginal osteophytes at the C4 through C7 levels. There is moderate to marked intervertebral disc space narrowing also present at the C5-C6 and C6-C7 levels. Mild facet degenerative arthropathy is also present at multiple levels. There is minor anterior spondylolisthesis of C3 on C4, C4 on C5, C7 on T1 and T1 and T2. There is slight retrolisthesis of C6 on C7. Alignment is otherwise intact from skull base to T1. The atlantooccipital articulations are preserved. The facet joints are appropriately aligned. The predental interval appears normal. There is no evidence of acute fracture. There is mild right and [id number] leftward neural foraminal narrowing at the C3-C4 level. There is minor posterior bulge of disc material. Facet degenerative arthropathy is most noted on the left. There is mild rightward neural foraminal narrowing at the C4-C5 level. No focal disc protrusion or significant central canal stenosis. There is mild right and moderate to severe leftward neural foraminal narrowing at the C5-C6 level. Posterior bar/disc produces mild to moderate ventral effacement upon the thecal sac andcentral canal stenosis. There is bilateral severe neural foraminal narrowing at the C6-C7 level. Posterior/bar/disc produces mild to moderate ventral effacement upon the thecal sac and central canal stenosis. There is mild rightward neural foraminal narrowing at the C7-T1 level Dental: Dental amalgam artifact limits evaluation of adjacent structures. Lungs: The visualized portions of the lung apices are normal. Lymph nodes: There is no evidence of pathologic adenopathy. Soft tissues: No significant soft tissue edema. No focal hematomas. IMPRESSION: No acute posttraumatic osseous abnormality. Moderate multilevel discogenic and spondylitic degenerative changes as detailed above.
--- NOTE | 2022-10-20 00:28 | XR_ITS ---
PROCEDURE INFORMATION: Exam: XR Chest Exam date and time: 10/20/2022 1:34 AM Age: 87 years old Clinical indication: Injury or trauma; Fall; Blunt trauma (contusions or hematomas) TECHNIQUE: Imaging protocol: Radiologic exam of the chest. Views: 1 view. COMPARISON: No relevant prior studies available. FINDINGS: Lungs: Small calcified granulomas noted both lungs. No active pulmonary infiltrate. Pleural spaces: Unremarkable. No pleural effusion. No pneumothorax. Heart/Mediastinum: Moderate-sized calcified lymph nodes noted in the AP window compatible with old granulomatous disease. Bones/joints: Moderate degenerative disc changes noted throughout the thoracic spine. IMPRESSION: No acute disease
--- NOTE | 2022-10-20 00:28 | XR_ITS ---
PROCEDURE INFORMATION: Exam: XR Pelvis Exam date and time: 10/20/2022 1:33 AM Age: 87 years old Clinical indication: Injury or trauma; Fall; Blunt trauma (contusions or hematomas); Does not apply; Pelvic region; Prior surgery TECHNIQUE: Imaging protocol: Radiologic exam of the pelvis. Views: 1 or 2 view. COMPARISON: PTV US PELVIS-TRANSVAGINAL ONLY 09/06/2016 2:04 PM FINDINGS: Bones/joints: Bilateral hip prostheses appear normally aligned. No acute fracture evident. Moderate degenerative changes noted in the lower lumbar spine. Soft tissues: Unremarkable. IMPRESSION: No acute abnormality
--- NOTE | 2022-10-20 00:28 | CT_ITS ---
PROCEDURE INFORMATION: Exam: CT Head Without Contrast Exam date and time: 10/20/2022 1:34 AM Age: 87 years old Clinical indication: Injury or trauma; Fall; Blunt trauma (contusions or hematomas); Additional info: Fall, syncope TECHNIQUE: Imaging protocol: Computed tomography of the head without contrast. Radiation optimization: All CT scans at this facility use at least one of these dose optimization techniques: automated exposure control; mA and/or kV adjustment per patient size (includes targeted exams where dose is matched to clinical indication); or iterative reconstruction. Other protocol: This patient has received [address] and 0 known cardiac nuclear medicine studies in the 12 months prior to the current study. COMPARISON: CT HEAD/BRAIN WO CON 06/06/2020 11:43 AM FINDINGS: Brain: Mild diffuse cerebral atrophy is consistent with this patient's age.The cortical/white matter interfaces are preserved throughout the brain.The visualized basilar cisterns are patent. There is moderate overall stable heterogeneity and patchy areas of bilateral decreased attenuation of the white matter consistent with chronic white matter ischemic change. Small area of low attenuation in the right periventricular white matter shows mild evolutionary change consistent with chronic process. There is no evidence of acute hemorrhage within the brain parenchyma or the subarachnoid space. There is no evidence of mass, mass effect or midline shift. Area of low density in the posterolateral right basal ganglia is stable consistent with chronic process. Cerebral ventricles: The ventricular system is normal in size and distribution. Paranasal sinuses: Mucoperiosteal thickening involves the frontal sinuses as well as the left anterior superior ethmoid sinus. Minor mucoperiosteal thickening involves a few scattered ethmoid air cells bilaterally. Mastoid air cells: The mastoid sinuses are normal. Orbital cavities: The orbits are normal. Bones/joints: There is no evidence of acute fracture. Soft tissues: No significant soft tissue edema. IMPRESSION: No acute posttraumatic intracranial abnormality.
[2022-10-20 00:36] LABS: Basophils # 0.6 K/mm3 (0-0.2); Basophils % 1.5 % (0.1-2.0); Eosinophils # 0.4 K/mm3 (0.0-0.4); Eosinophils % 1.1 % (0.1-12.0); Hematocrit 40.9 % (37.0-47.0); Hemoglobin 13.6 g/dL (12.2-16.2); Lymphocytes # 32.9 K/mm3 (0.7-4.5); Lymphocytes % 84.2 % (10-50); Mean Corpuscular HGB Conc 33.2 g/dL (31.8-35.4); Mean Corpuscular Hemoglobin 31.4 pg (27.0-31.2); Mean Corpuscular Volume 94.6 fl (81-99); Mean Platelet Volume 8.1 fl (7.4-10.4); Monocytes # 0.6 K/mm3 (0.1-1.0); Monocytes % 1.4 % (1.7-9.3); Neutrophils # 4.6 K/mm3 (1.8-7.8); Platelet Count 324 K/mm3 (142-424); Red Blood Count 4.32 M/mm3 (4.20-5.40); Red Cell Distribution Width 13.3 % (11.5-17.5); White Blood Count 39.1 K/mm3 (4.8-10.8)
[2022-10-20 00:46] LABS: Alanine Aminotransferase 17 U/L (12-78); Albumin Level 4.2 g/dl (3.5-5.0); Albumin/Globulin Ratio 1.4 (1.1-1.8); Alkaline Phosphatase 84 U/L (38-126); Aspartate Amino Transferase 36 U/L (14-36); Bilirubin,Total 0.7 mg/dl (0.2-1.3); Blood Urea Nitrogen 19 mg/dl (7-17); Calcium 8.7 mg/dl (8.4-10.2); Carbon Dioxide 27 mmol/L (22.0-30.0); Chloride 104 mmol/L (98-107); Creatinine Clearance Estimated 48 mL/min (50-200); Estimated Glomerular Filt Rate 60 ml/min (>60); GFR (African American) 72 ML/MIN (>60); Glucose 129 mg/dl (74-100); Magnesium 2.3 mg/dl (1.6-2.3); Potassium 3.8 mmoL/L (3.5-5.1); Total Protein,Serum 7.2 g/dl (6.3-8.2)
--- NOTE | 2022-10-20 00:56 | HMH.EDFALL ---
Discharge Plan Disposition Patient Disposition: Admitted As Inpatient Chief Complaint: Fall Prescriptions Prescriptions: No Action lisinopril 20 mg tablet 20 mg PO DAILY Label Comments: TAKE 1 TABLET BY MOUTH TWICE DAILY atorvastatin 40 MG tablet 40 mg PO HS carvedilol 6.25 MG tablet 6.25 mg PO BID Referrals Follow up/Referrals: Makayla Jaramillo MD [Primary Care Provider] - See instructions Clinical Impressions Clinical Impression: Syncope, Chronic lymphocytic leukemia Discharge ED Provider: Sam (ED),Aleks Encinas Fall HPI General Chief Complaint: Fall Stated Complaint: Fall & hit head Time Seen by Provider: 10/20/22 00:56 Mode of Arrival: EMS Source of Information: Patient, Relative, EMS and Medical Record Limitations: No Limitations Description of Symptoms (Recalled from ER Triage Doc. by RN): Per ems, patient fell roughly 30 minutes ago in her bathroom. fall was unwitnessed. Pt lives at home with daughter and daughter immediately found her mother down and called ems. Patient does not remember the fall or details but does state that she took a laxative earlier tonight and has been having intermittent diarrhea since then. EMS states that when they arrived on scene patient was sitting on the toilet and had a syncopal episode. States that it took the patient roughly 15 seconds to come around . History of Present Illness HPI Narrative: pt with fall in bathroom - pt with no specific memory of details - pt with about 1 min episode of dec loc with paramedics w/o sz/apnea or tachycardia - pulse did slow and returned to baseline - has hx of cva in past and prob cll - no current fever or gi issues - has response to laxative took earlier -has been compliant with meds complaint: fall Onset (ago): hour(s) Fall from: standing Fall witnessed: no Place fall occurred: home Loss of consciousness: unsure Prolonged down time: no Symptoms prior to fall: none Location of injury: head Associated symptoms (after fall): denies Related Data Home Medications Medication Instructions Recorded Confirmed atorvastatin 40 mg tablet 40 mg PO HS High cholesterol 10/20/22 10/20/22 carvedilol 6.25 mg tablet 6.25 mg PO BID High blood pressure 10/20/22 10/20/22 lisinopril 20 mg tablet 20 mg PO DAILY High blood pressure 10/20/22 10/20/22 Allergies Allergy/AdvReac Type Severity Reaction Status Date / Time No Known Drug Allergies Allergy Verified 07/01/20 08:27 [facility] Disclaimer: The information contained in this section may have been updated after the patient was seen, as this information can be updated by other users. Social History Smoking Status: Never smoker alcohol intake: never current occupational status: retired Travel in the last 8 weeks: None housing: house current occupational exposures/hazards: No caffeine: Yes ROS Obtained: Yes All systems reviewed & no additional complaints except as documented Physical Exam General General appearance: alert Head Head exam: normocephalic Eye Eye exam: Present PERRL and EOMI; Absent nystagmus ENT ENT exam: Present mucous membranes moist and other (no evid of tongue biting ) Neck Neck exam: Present trachea midline and other (sl bruit on rt ) Respiratory Respiratory exam: Present normal lung sounds bilaterally; Absent respiratory distress Cardiovascular Cardiovascular exam: Present regular rate, systolic murmur and +S4 Abdominal Exam Abdominal exam: Present soft; Absent tenderness Extremities Exam Extremities exam: Present full ROM Neurological Exam Neurological exam: Present alert, oriented X3 and CN II-XII intact; Absent motor sensory deficit Psychiatric Psychiatric exam: Present normal affect Skin Skin exam: Absent rash Medical Decision Making Medical Records Medical records reviewed: Yes I reviewed the patient's medical records. [facility] Inquiry Pt receiving controlled substance: No Vital Signs: 10/20/22 00:37 [place]
[2022-10-20 01:09] LABS: Troponin I < 0.01 ng/ml (0.00-0.034)
[2022-10-20 01:10] LABS: Anion Gap 8.8 mEq/L (5-15); Sodium 136 mmol/L (136-145)
[2022-10-20 01:29] LABS: Coronavirus 19, PCR Not Detected (NotDetected); Influenza A, PCR Not Detected (NotDetected); Influenza B, PCR Not Detected (NotDetected); Microscopic, Urine URINE MICROSCOPIC (MICROSCOPIC)
[2022-10-20 01:41] LABS: Neutrophils % 11.9 % (37.0-80.0)
[2022-10-20 01:43] LABS: MANUAL DIFFERENTIAL MANUAL DIFFERENTIAL (MANUAL DIFF)
[2022-10-20 01:49] LABS: Appearance,Urine CLEAR (Clear); Bilirubin,Urine Negative (Negative); Blood, Urine TRACE-I (Negative); Color,Urine YELLOW (Yellow); Glucose,Urine (UA) Negative (Negative); Ketones,Urine Negative (Negative); Leukocyte Esterase,Urine Negative (Negative); Nitrate,Urine Negative (Negative); Protein,Urine Negative (Negative); Specific Gravity, Urine 1.015 (1.005-1.030)
--- NOTE | 2022-10-20 01:50 | PC.NURSE ---
reviewed with pt's daughter her home medicines as pt was unable to tell us and reported her daughter would know.
[2022-10-20 01:53] LABS: Bacteria,Urine 2+ /lpf
--- NOTE | 2022-10-20 02:34 | PC.NURSE ---
Hospitalist at bedside
--- NOTE | 2022-10-20 02:44 | CA_ITS ---
FINAL REPORT TECHNIQUE: Real-time imaging was performed of the extracranial carotid arteries in transverse and longitudinal planes, with color duplex evaluation of blood flow velocity. Spectral analysis was performed. The cervical vertebral arteries were also examined. CLINICAL HISTORY: SYNCOPE,HTN,LEUKEMIA COMPARISON: None FINDINGS: NASCET technique is utilized for stenosis evaluation. Right carotid system (centimeters/second): CCA: 54 ICA: 99 ECA: 105 Vertebral artery: Antegrade ICA/CCA ratio: 1.84 Mild plaque is identified at the bifurcation. Left carotid system (centimeters/second): CCA: 89 ICA: 99 ECA: 135 Vertebral artery: Antegrade ICA/CCA ratio: 1.45 Mild plaque is identified at the bifurcation. IMPRESSION: <50% right ICA stenosis. <50% left ICA stenosis. Reviewed, Interpreted and Dictated by Aubree Shay MD Transcribed by Maria Elena Ruiz Authenticated and [facility]
--- NOTE | 2022-10-20 02:48 | PC.NURSE ---
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
[2022-10-20 02:52] LABS: Eosinophils % 1 % (0-3); Lymphocytes % 93 % (10-50); Neutrophils % 6 % (42-76); Total Cells Counted 100
[2022-10-20 02:54] LABS: Platelet Estimate Normal; RBC Morphology Normal
--- NOTE | 2022-10-20 02:57 | EXP.HP ---
History of Present Illness *Admission Date: 10/20/22 *Reason for visit:: Syncope *History of present illness: This is an 87-year-old female with a past medical history of prior CVA with no deficits, untreated CLL with previous oncology evaluation and hypertension who presents to the emergency department today after a syncopal episode. She lives with her daughter and her daughter heard a noise in walked into her bathroom and found her mother unresponsive on the floor. EMS was called and upon arrival she was more alert but still blankly staring without much response For about 45 seconds. After this she started to respond at her baseline. she reports taking a laxative earlier in the evening. She denies any symptoms prior to the syncopal episode. She reports no associated dysarthria, confusion, motor or sensory loss other than identified syncope. She denies chest pain, fever, palpitations or chest pain. She denies abdominal pain. She reports taking laxatives approximately once a week. She also reports starting a beta-tamie in August by her PCP Dr. Castillo. Emergency department imaging unremarkable for acute disease. Persistent bradycardia in the low 50s in the emergency department. Leukocytosis noted with previous history of CLL noted. Given patient's persistent bradycardia and recent syncopal episode, she will be admitted to the hospital service for further evaluation and management. Her beta-tamie therapy will be held. ED ECG reviewed with sinus bradycardia and incomplete right bundle branch block with QTc 414 ms. Troponin x2 negative, magnesium normal, electrolytes normal, creatinine 0.7. Glucose trend under 150. 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 Family History Other Family history of cancer Social History Smoking Status: Never smoker alcohol intake: never current occupational status: retired Travel in the last 8 weeks: None housing: house marital status: current occupational exposures/hazards: No caffeine: Yes Review of Systems Review of Systems Review of systems:: pertinent systems reviewed and negative unless documented below Constitutional Constitutional: Reports as per HPI *Cardiovascular Cardiovascular: Reports as per HPI *Gastrointestinal Gastrointestinal: Reports as per HPI *Neurologic Neurologic: Reports as per HPI Meds Home Medications and Allergies Home Medications Medication Instructions Recorded Confirmed Type atorvastatin 40 mg tablet 40 mg PO HS High cholesterol 10/20/22 10/20/22 History carvedilol 6.25 mg tablet 6.25 mg PO BID High blood pressure 10/20/22 10/20/22 History lisinopril 20 mg tablet 20 mg PO BID High blood pressure 10/20/22 10/20/22 History New Prescriptions to Start Prescriptions: Allergies Allergy/AdvReac Type Severity Reaction Status Date / Time No Known Drug Allergies Allergy Verified 07/01/20 08:27 Exam Data for Last 24 hours Vital signs and Labs for Last 24 Hours: Temp Pulse Resp BP Pulse Ox 98 F 55 L 18 141/62 H 95 10/20/22 00:37 10/20/22 00:37 10/20/22 00:37 10/20/22 00:37 10/20/22 00:37 Laboratory Results - last 24 hr 10/20/22 00:20: WBC 39.1 H*, RBC 4.32, Hgb 13.6, Hct 40.9, MCV 94.6, MCH 31.4 H, MCHC 33.2, RDW 13.3, Plt Count 324, MPV 8.1, Neut % (Auto) 11.9 L, Lymph % (Auto) 84.2 H, Kane % (Auto) 1.4 L, Eos % (Auto) 1.1, Baso % (Auto) 1.5, Neut # (Auto) 4.6, Lymph # (Auto) 32.9 H, Kane # (Auto) 0.6, Eos # (Auto) 0.4, Baso # (Auto) 0.6 H, Total Counted 100, Neutrophils % (Manual) 6 L, Lymphocytes
--- NOTE | 2022-10-20 03:24 | PC.NURSE ---
Pt arrived to floor via stretcher @ 0727.
[2022-10-20 03:58] LABS: Troponin I < 0.01 ng/ml (0.00-0.034)
--- NOTE | 2022-10-20 06:44 | PC.NURSE ---
ORTHOSTATIC BP'S COMPLETED AT THIS TIME
[2022-10-20 07:05] LABS: Basophils # 0.4 K/mm3 (0-0.2); Basophils % 0.9 % (0.1-2.0); Eosinophils % 0.1 % (0.1-12.0); Hematocrit 42.7 % (37.0-47.0); Hemoglobin 13.3 g/dL (12.2-16.2); Lymphocytes # 26.5 K/mm3 (0.7-4.5); Lymphocytes % 66.2 % (10-50); Mean Corpuscular HGB Conc 31.2 g/dL (31.8-35.4); Mean Corpuscular Hemoglobin 30.3 pg (27.0-31.2); Mean Corpuscular Volume 97.1 fl (81-99); Monocytes # 0.7 K/mm3 (0.1-1.0); Monocytes % 1.8 % (1.7-9.3); Neutrophils # 12.4 K/mm3 (1.8-7.8); Neutrophils % 31.1 % (37.0-80.0); Platelet Count 276 K/mm3 (142-424); Red Cell Distribution Width 13.2 % (11.5-17.5)
[2022-10-20 07:20] LABS: Chloride 104 mmol/L (98-107)
[2022-10-20 07:21] LABS: Potassium 4.3 mmoL/L (3.5-5.1); Sodium 137 mmol/L (136-145)
[2022-10-20 07:23] LABS: Blood Urea Nitrogen 17 mg/dl (7-17); Creatinine Clearance Estimated 47 mL/min (50-200); Estimated Glomerular Filt Rate 80 ml/min (>60); GFR (African American) 96 ML/MIN (>60)
[2022-10-20 07:24] LABS: Anion Gap 9.3 mEq/L (5-15); Calcium 8.6 mg/dl (8.4-10.2); Carbon Dioxide 28 mmol/L (22.0-30.0); Chol/HDL Ratio 2.7 (1-3.5); Cholesterol 136 mg/dl (140-200); Glucose 130 mg/dl (74-100); HDL Cholesterol 51 mg/dl (40-60); Phosphorous 2.9 mg/dl (2.5-4.5); Triglycerides 59 mg/dl (30-150); VLDL Cholesterol 12 mg/dL (0-40)
--- NOTE | 2022-10-20 07:26 | P.CONPHA_ITS ---
Pharmacy Intervention Comments: HOME MEDICATION LIST VERIFIED USING LIST FROM [facility]
--- NOTE | 2022-10-20 07:26 | HMH.PHAINT1 ---
Pharmacy Intervention Comments: HOME MEDICATION LIST VERIFIED USING LIST FROM [facility]
[2022-10-20 07:35] LABS: Direct LDL Cholesterol 61.08 mg/dL (100-129)
[2022-10-20 07:38] LABS: Troponin I < 0.01 ng/ml (0.00-0.034)
--- NOTE | 2022-10-20 09:35 | HMH.OTEV ---
OT Inpatient Evaluation Rehab OT IP Evaluation Start: 10/20/22 08:15 Freq: ONCE Status: Active Protocol: Document 10/20/22 09:26 KALINAGERBER (Rec: 10/20/22 09:35 [facility] [id number]) Rehab OT IP Assessment Subjective History Pt was seen resting in bed upon arrivial. Pt was oriented x3 person, place, and . Pt agreeable to engage in therapy evaluation. Pt was admitted to [facility] on 10/20/22 due to Syncope. Pt reports that she was independent in all ADLs and IADLs. Pt reports that she uses AE of long- handled sock aid to don/doff socks. She reports that she lives with her daughter. Pt reports that she uses a cane at night for functional mobility. Pt reports that she is still able to drive and complete lawn care independently. Pt has a past medical history of the following: Chronic lymphocytic leukemia CVA (cerebral vascular accident) Degenerative joint disease of cervical spine Hypertension Pt was left resting in bed with call fowler and all other needs within reach. Subjective I just don't understand what happened. Objective Patient Orientation Person,Place,Birthday Upper Extremity Gross ROM WNL Bed Mobility bed mobility-scooting,bed mobility - supine/sit Assist Level Independent Transfer Training Sit/Stand Transfer Assist Level Supervision/Stand by Lower Body Dressing Ability Independent Performing Toilet Hygiene Ability Independent Overall Commode/Toilet Transfer Ability Standby Assistance decrease in endurance No Rehab OT IP prob,goals,plan Problems Date of Evaluation: 10/20/22 Rehab Potential Rehab Potential Innapropriate for Skilled Therapy Discharge Plan OT Discharge Plan Pt is currently at her baseline with all ADLs and
--- NOTE | 2022-10-20 09:46 | HMH.PTEV ---
Physical Therapy Evaluation Rehab PT IP Evaluation Start: 10/20/22 08:15 Freq: ONCE Status: Active Protocol: Document 10/20/22 09:26 NIMESH (Rec: 10/20/22 09:46 NIMESH [id number]) Subjective/History History History Patient is an 87 year old female admitted to [facility] 10/20/22 secondary to a fall at home as a result of a syncopal episide. Patient previously lived at home with daughter, was still able to drive and independent with all adl's. Subjective Subjective I just got a little dizzy and fell down. Rehab PT IP Eval Objective Appearance Patient Behavior Appropriate,Cooperative Patient Orientation Person,Place,Birthday Difficulty following instructions none Speech Pattern Clear,Appropriate Ambulation Patient Able to Ambulate Yes Ambulation Observation IP General Gait Pattern Observation No Deviations/Normal Ambulation Distance (feet) 20 Ambulation Assistive Device None Ambulation Ability Contact Guard/Hand Hold Balance Ability to Arise Able, uses arms to help Standing Balance Steady, wide stance Dynamic Sitting Balance Ability Normal Dynamic Standing Balance Ability Normal Transfers Bed Transfer Ability Independent Sit to Stand Bed Transfer Ability Independent ROM All Extremities PT ROM Status WFL MMT All Extremities PT MMT WFL Rehab PT IP prob,goals,plan Problems Date of Evaluation: 10/20/22 Discharge Plan PT Discharge Plan PT suggests DC to home with daughter once found medically stable by MD. G -code Required Yes Eval Complexity Eval Charge Codes 05005 - High Complexity G Codes PT Current Status Mobility PT Current Status Modifier CI-At least 1% but less than 20% impaired, limited or restricted PT Goal Status Mobility PT Goal Status Modifer CI-At least 1% but less than 20% impaired, limited or restricted PHYSICIAN CERTIFICATION: I certify the specified therapy services for Nica Parra are required, authorized, and reviewed every 30 days.
--- NOTE | 2022-10-20 14:42 | EXP.DC.SUM ---
General Admission date:: 10/20/22 Discharge date: 10/20/22 HPI HPI HPI: This is an 87-year-old female with a past medical history of prior CVA with no deficits, untreated CLL with previous oncology evaluation and hypertension who presents to the emergency department today after a syncopal episode. She lives with her daughter and her daughter heard a noise in walked into her bathroom and found her mother unresponsive on the floor. EMS was called and upon arrival she was more alert but still blankly staring without much response For about 45 seconds. After this she started to respond at her baseline. she reports taking a laxative earlier in the evening. She denies any symptoms prior to the syncopal episode. She reports no associated dysarthria, confusion, motor or sensory loss other than identified syncope. She denies chest pain, fever, palpitations or chest pain. She denies abdominal pain. She reports taking laxatives approximately once a week. She also reports starting a beta-tamie in August by her PCP Dr. Castillo. Emergency department imaging unremarkable for acute disease. Persistent bradycardia in the low 50s in the emergency department. Leukocytosis noted with previous history of CLL noted. Given patient's persistent bradycardia and recent syncopal episode, she will be admitted to the hospital service for further evaluation and management. Her beta-tamie therapy will be held. ED ECG reviewed with sinus bradycardia and incomplete right bundle branch block with QTc 414 ms. Troponin x2 negative, magnesium normal, electrolytes normal, creatinine 0.7. Glucose trend under 150. Hospital Course Hospital Course Hospital Course: The patient is admitted to the medical floor with telemetry and pulse oximetry monitoring. Her beta-tamie therapy is held and her heart rates improved. Carotid Dopplers identified no interventional carotid disease. PT and OT assessed the patient and identified baseline mobility. Her laboratory studies were reviewed and discussed including her white blood cell count with her CLL diagnoses. Her hemoglobin and platelet counts were normal. Her electrolytes and creatinine were normal. Her total cholesterol was 136 and her LDL cholesterol 61 with normal triglycerides and HDL 51. The patient identified improvement and inquired about discharge home. Her daughter was at bedside on day of discharge. She lives with her mother. We have discussed her beta-tamie therapy and holding the medication until follow-up with her PCP to discuss alternative therapies, reduced dose and the importance of ongoing monitoring with home pulse oximeter. I spent 35 minutes in [id number] time with the patient and nursing staff concerning the discharge process. We discussed the admitting diagnoses and hospital course. We discussed identified improvement and the patient's desire to be discharged. We reviewed inpatient studies and imaging. The patient voiced understanding on the importance of follow-up with her primary care provider and specialist(s). The patient plans to be compliant with the medication regimen prescribed and follow-up appointments. She understands that she can return to the emergency department with any sudden changes or concerns. Exam Data for Last 24 hours Vital signs and Labs for Last 24 Hours: Temp Pulse Resp BP Pulse Ox 99.1 F 94 H 20 127/58 L 94 L 10/20/22 11:51 10/20/22 11:51 10/20/22 11:51 10/20/22 11:51 10/20/22 11:51 Laboratory Results - last 24 hr 10/20/22 00:20: WBC 39.1 H*, RBC 4.32, Hgb 13.6, Hct 40.9, MCV 94.6, MCH 31.4 H, MCHC 33.2, RDW 13.3, Plt Count 324, MPV 8.1, Neut % (Auto) 11.9 L, Lymph % (Auto) 84.2 H, Payne % (Auto) 1.4 L, Eos % (Auto) 1.1, Baso % (Auto) 1.5, Neut # (Auto) 4.6, Lymph # (Auto) 32.9 H, Payne # (Auto) 0.6, Eos # (Auto) 0.4, Baso # (Auto) 0.6 H, Total Counted 100, Neutrophils % (Manual) 6 L, Lymphocytes % (Manual) 93 H, Eosinophils % (Manual) 1, Platelet Estimate Nor
[2022-10-22 01:58] LABS: Peripheral Smear Review Scanned Result
--- NOTE | 2022-10-23 14:45 | CARE MANAGER ---
Spoke with patient for post-discharge phone interview, patient states that she is dong well and has no issues.
== END 2022-10-20 17:31 | disposition home or self-care (01) ==
LOC: ER 02:42 → 2ND 03:44
PROVIDERS: Nurse Practitioner Acute Care; Admitting Provider Family Medicine; Emergency Provider Emergency Medicine; PCP Family Medicine; Visit Provider Family Medicine
DX: R55 Syncope and collapse (principal); C91.10 Chronic lymphocytic leukemia of B-cell type not having achieved remission; I65.23 Occlusion and stenosis of bilateral carotid arteries; I10 Essential (primary) hypertension; Z79.01 Long term (current) use of anticoagulants; R00.1 Bradycardia, unspecified; Z20.822 Contact with and (suspected) exposure to COVID-19; Z79.899 Other long term (current) drug therapy; Z86.73 Personal history of transient ischemic attack (TIA), and cerebral infarction without residual deficits; W18.11XA Fall from or off toilet without subsequent striking against object, initial encounter; Y92.012 Bathroom of single-family (private) house as the place of occurrence of the external cause
CPT/HCPCS: G0378; 36415; 70450; 71045; 72125; 72170; 80048; 80053; 80061; 81001; 83735; 84100; 84484; 85007; 85025; 87086; 93005; 93880; 97163; 97165; 99285; C9803; U0003; U0005

== ENCOUNTER → 2023-06-29 15:15 | Outpatient (CLI) | payer MEDICARE, BC, SELFPAY ==
--- NOTE | 2023-06-29 15:19 | MM_ITS ---
PROCEDURE INFORMATION: Exam: MG Bilateral Screening 3D Mammography Exam date and time: 06/29/2023 3:24 PM Age: 88 years old Clinical indication: Screening examination; No personal or family history of breast cancer TECHNIQUE: Imaging protocol: Bilateral Screening tomosynthesis and 2D mammography including computer-aided detection (CAD) when performed. COMPARISON: MG MM DIG SCREENING MAMM BI W/CAD 06/09/2022 3:45 PM FINDINGS: MAMMOGRAPHY: Breast composition: There are scattered areas of fibroglandular density. Mass: None. Architectural distortion: None. Calcifications: No suspicious calcifications. Asymmetric density: None. Skin thickening: None. Axillary adenopathy: None. IMPRESSION: No mammographic evidence of malignancy. Annual screening is recommended unless otherwise clinically indicated. ASSESSMENT: BI-RADS Category 1: Negative
== END ==
PROVIDERS: PCP Family Medicine; Visit Provider Family Medicine
DX: Z12.31 Encounter for screening mammogram for malignant neoplasm of breast (principal)
CPT/HCPCS: 77063; 77067